=== PATIENT | female | born 1950 | race Caucasian/White ===

== ENCOUNTER 2023-12-18 11:37 | Emergency (ER) | payer BC, MEDICARE ==
[~2023-12-18] VITALS: Ht 162.6 cm; Wt 106.4 kg
[2023-12-18] MEDS: ACETAMINOPHEN TAB 650MG DOSE (2X325MG) PO ONE (12:30)
[2023-12-18 14:30] VITALS: BP 117/64; TEMP 98.8; O2SAT 99
== END 2023-12-18 14:41 | disposition home or self-care (01) ==
LOC: EDBD 11:37 → M ED 11:37
DX: S00.83XA Contusion of other part of head, initial encounter (principal); Y92.59 Other trade areas as the place of occurrence of the external cause; Y93.9 Activity, unspecified; Y99.9 Unspecified external cause status; W01.0XXA Fall on same level from slipping, tripping and stumbling without subsequent striking against object, initial encounter; E78.00 Pure hypercholesterolemia, unspecified; Z88.8 Allergy status to other drugs, medicaments and biological substances